=== PATIENT | female | born 1995 ===

== ENCOUNTER 2023-05-07 15:09 | Outpatient (REF) | payer OTHER, SELFPAY ==
[2023-05-07 21:48] LABS: Abs Immature Grans 0.01 10^3/uL (0.0-0.06); Absolute Basophil Count 0.04 10^3/uL (0.0-0.2); Absolute Eosinophil Count 0.17 10^3/uL (0.0-0.7); Absolute Lymphocyte Count 2.29 10^3/uL (1.2-3.4); Absolute Monocyte Count 0.58 10^3/uL (0.1-0.8); Absolute Neutrophil Count 4.97 10^3/uL (1.2-6.7); Basophils % 0.5; Eosinophils % 2.1; HCT 37.8 % (36.0-46.0); HGB 13.7 g/dL (11.2-15.7); Immature Grans % 0.1; Lymphocytes % 28.4; MCH 32.6 pg (27.0-33.0); MCHC 36.2 % (32.0-36.0); MCV 90 fL (80-95); Monocytes % 7.2; Neutrophils % 61.7; Platelet Count 215 10^3/uL (130-400); RDW 11.7 % (11.7-14.6); RDW-SD 38.5 fL; WBC 8.06 10^3/uL (4.4-10.8)
[2023-05-07 22:09] LABS: ALT 22 U/L (14-59); AST 18 U/L (15-37); Albumin 4.5 g/dL (3.4-5.0); Alkaline Phosphatase 47 U/L (46-116); Anion Gap 11.5 mmol/L (3-11); BUN 16 mg/dL (7-18); Bilirubin, Total 0.6 mg/dL (0.2-1.0); CO2 26.5 mmol/L (21.0-32.0); CREATININE 0.9 mg/dL (0.55-1.02); Calcium 9.5 mg/dL (8.5-10.1); Chloride 103 mmol/L (98-107); Estimated GFR 90.42 (mL/min/1.73m2); FREE T4 0.95 ng/dL (0.76-1.46); Glucose 92 mg/dL (74-106); Magnesium 2.1 mg/dL (1.8-2.4); Potassium 3.7 mmol/L (3.5-5.1); Sodium 141 mmol/L (136-145); Total Protein 7.9 g/dL (6.4-8.2)
[2023-05-07 22:24] LABS: Vitamin D 25 Total 31.6 ng/mL (30-100)
== END 2023-05-07 15:10 | disposition home or self-care (01) ==
LOC: NCHCN 15:09
PROVIDERS: Visit Provider Family Medicine
DX: R53.83 Other fatigue (principal); E55.9 Vitamin D deficiency, unspecified; E61.2 Magnesium deficiency
CPT/HCPCS: 80053; 82306; 83735; 84439; 84443; 85025

== ENCOUNTER → 2024-01-11 16:50 | Emergency (ER) | payer OTHER, SELFPAY ==
[2024-01-11 16:51] VITALS: BP 118/75; PULSE 98; RESP 16; TEMP 36.5; O2SAT 98
--- NOTE | 2024-01-11 17:26 | ED.GENADUL_ITS ---
Discharge Plan Disposition Patient Disposition: Home Condition: Good Discharge Details Clinical Impression: Cellulitis and abscess of lower extremity Primary Care Provider: Quyen Roman ED Provider: Iza Aldana Home Meds and New Rx's Prescriptions: New doxycycline hyclate 100 mg capsule 100 mg PO BID Qty: 14 0RF Discharge Instructions Additional Instructions: Please follow-up with your primary care provider within the next week for reassessment to make sure everything is healing well. I have prescribed an antibiotic called doxycycline. Please take the full course as prescribed. Please note that this may make you sensitive to the sun and cause a blistering rash due to photosensitivity, wear SPF 50 and long sleeves and a hat whenever you go outside. Use warm compresses for 15 to 20 minutes at a time on your abscess. Cover with a nonstick bandage. Return to emergency care if you develop new fever/chills, rapidly spreading infection, worsening redness/swelling/pain after 48 hours of antibiotics, or if you are very worried and need to be rechecked again immediately Referrals: Quyen Roman MD [Primary Care Provider] - [facility] General Date/Time Provider Initiated Documentation: 01/11/24 17:06 . [facility] Narrative: Maggie is a 28-year-old female presents to the emergency department today for evaluation of right leg abscess. She reports that she had redness and swelling in the area approximately 2 months ago, she was able to squeeze it and express a small amount of pus. It then resolved spontaneously. Couple of days ago it reappeared, has been painful, reddened, and swollen. She attempted to squeeze it but was not able to get anything out. Swelling has extended around the original lesion. No known inciting factors, says she did not have any skin tears or wounds. Denies associated fever/chills, general malaise, difficulty ambulating due to discomfort, or distal numbness/tingling. Denies significant past medical history/immunocompromise. Physical exam remarkable for area of induration approximately 8 cm diameter to right lateral gilbert. No active drainage. +CMS to foot. Painless range of motion to knee and ankle. History and presentation consistent with abscess with surrounding cellulitis. Abscess was confirmed on ultrasound. I&D performed after anesthetizing the area with 2% lidocaine with epi. Incision made with #15 blade. A moderate amount of pus was able to be expressed. Patient tolerated procedure well. Wound dressed by RN Will treat outpatient with doxycycline for surrounding cellulitis. Reviewed discharge instructions with patient, including warm compresses and red flags indicating need for return to emergency care. Related Data Home Medications ?Medication ?Instructions ?Recorded ?Confirmed doxycycline hyclate 100 mg capsule 100 mg PO BID #14 caps 01/11/24 Previous Rx's ?Medication ?Instructions ?Recorded doxycycline hyclate 100 mg capsule 100 mg PO BID #14 caps 01/11/24 General Stated Complaint: RashLesion TOPHER: 4 Review of Systems Narrative: see HPI Exam Const General: cooperative, healthy appearing, comfortable, no acute distress and well developed Nutritional Appearance: average body habitus Orientation: alert and oriented x3 Resp Effort & Inspection: normal respiratory effort and able to speak in complete sentences Skin Other: abscess noted to R medial lower leg with approx 8 cm diameter area of surrounding cellulitis Extrem Right lower extremity: full ROM, normal capillary refill and no joint enlargement; no edema Course Vital Signs Vital signs: Vital Signs Temperature 36.5 C 01/11/24 16:51 Pulse 98 H 01/11/24 16:51 Respiratory Rate 16 01/11/24 16:51 Blood Pressure 118/75 01/11/24 16:51 Pulse Oximetry 98 01/11/24 16:51 Temperature 36.5 C 01/11/24 16:51 Temperature Source Tympanic 01/11/24 16:51 Pulse 98 H 01/11/24 16:51 Respiratory Rate 16 01/11/24 16:51 Blood Pressure 118/75 01/11/24 16:51 Blood Pressure Position Sitting 01/11/24 16:51 Pulse Oximetry 98 01/11/24 16:51 Oxygen Delivery Method Room Air 01/11/24 16:51 Oxygen Flow Rate 0 01/11/24 16:51 Pain Level 3 01/11/24 16:51 Comment pain worse with weight bearing 01/11/24 16:51 Procedures Abscess I/D Site: Lower Extremity Side (if applicable): Right Local Anesthetic: Lidocaine 2% and With Epi Amount of anesthesia used (mL): 3 Technique: Incised with #11 Blade Amount of fluid expressed (mL): 2 Irrigation: Yes Packing used?: None Medical Decision Making Quality:SDOH Health Related Social Needs: No Data to Display PFSH All Active Problems (Updated 01/11/24 @ 17:54 by Iza Brown) Cellulitis and abscess of lower extremity (Acute) Social History Smoking risk assessment performed?: No Do you feel safe at home: Yes Do you feel safe in your relationship?: Yes
[2024-01-11] MEDS: Lidocaine 2% Pres-Free W/EPI 1/200,000 20 ML VIAL (18:26)
[2024-01-11] MEDS: Doxycycline Hyclate 100 MG CAP PO (18:26)
== END | disposition home or self-care (01) ==
LOC: ER 18:16 → RED 18:27
PROVIDERS: Emergency Provider Nurse Practitioner Family; PCP Family Medicine
DX: L02.415 Cutaneous abscess of right lower limb (principal); L03.115 Cellulitis of right lower limb
CPT/HCPCS: 10060; 99283

== ENCOUNTER 2024-05-26 20:51 | Outpatient (REF) | payer OTHER, SELFPAY ==
--- NOTE | 2024-05-26 15:00 | PAPFT_PTH ---
PATIENT: Maggie Redmond [id number] AGE/SX: 28/F ROOM: RE05/26/[address]: Quyen Roman : 1995 BED: DIS: 05/26/2024 SPEC #: [id number] RECD: 05/27/24 13:15 STATUS: GELACIO TRAORE #: [id number] VAN: 05/26/24 15:[address]: Quyen Roman DEPT: [facility] Cytology RECD BY: Elena Merrill Tissues: 1 - CX/ENDOCX FOR PAP SMEARS Procedures: PAP THIN PREP/[facility] Screening HPV DNA PROBE Comments: [id number] (HPV 16 & 18/45)
== END 2024-05-26 20:52 | disposition home or self-care (01) ==
LOC: NCHCN 20:51
PROVIDERS: PCP Family Medicine; Visit Provider Family Medicine
DX: Z11.51 Encounter for screening for human papillomavirus (HPV) (principal); Z01.419 Encounter for gynecological examination (general) (routine) without abnormal findings; R87.612 Low grade squamous intraepithelial lesion on cytologic smear of cervix (LGSIL)
CPT/HCPCS: 88142; 87624